=== PATIENT | female | born 1925 | race American Indian/Alaskan Native ===

== ENCOUNTER 2017-01-01 19:12 | Observation (INO) | payer MEDICARE ==
[2017-01-01 19:12] VITALS: BMI 32.3
[2017-01-01 21:54] LABS: BASO # 0.1 K/uL (0.0-0.2); BASO % 1.4 % (0.0-2.0); EOS # 0.2 K/uL (0.0-0.7); EOS % 3.4 % (0.0-4.0); HEMATOCRIT 33.6 % (34.0-47.0); LYMPH # 2.2 K/uL (1.0-4.3); LYMPH % 35.2 % (20.0-40.0); MEAN CELL VOLUME 91.7 fL (81.0-99.0); MEAN CORPUSCULAR HEMOGLOBIN 30.5 pg (27.0-31.0); MEAN CORPUSCULAR HGB CONC 33.2 g/dL (33.0-37.0); MEAN PLATELET VOLUME 9.2 fL (7.2-11.7); MONO # 0.5 K/uL (0.0-0.8); MONO % 8.7 % (0.0-10.0); RED CELL DISTRIBUTION WIDTH 13.1 % (11.5-14.5); WHITE BLOOD COUNT 6.3 K/uL (4.8-10.8)
[2017-01-01 22:02] LABS: INR 1.1
[2017-01-01 22:11] LABS: CHLORIDE 103 mmol/L (98-107); POTASSIUM 4.1 mmol/L (3.6-5.2); SODIUM 140 mmol/L (132-148)
[2017-01-01 22:13] LABS: BILIRUBIN,TOTAL 0.7 mg/dL (0.2-1.3); CARBON DIOXIDE 26 mmol/L (22-30); GFR AFRICAN-AMERICAN > 60
[2017-01-01 22:14] LABS: ALB/GLOB RATIO 1.2 (1.0-2.1); ALKALINE PHOSPHATASE 65 U/L (38-126); ALT/SGPT 24 U/L (9-52); AST/SGOT 30 U/L (14-36); BLOOD UREA NITROGEN 16 mg/dL (7-17); GLUCOSE,RANDOM 138 mg/dL (65-105)
--- NOTE | 2017-01-01 22:38 | C.PDOC ---
History Of Present Illness 89 year old female who presents to the ER with a complaint of lower extremity edema for the past week. Denies chest pain, SOB, or Hx of CHF. Time Seen by Provider: 01/01/17 21:14 Chief Complaint (Nursing): Lower Extremity Problem/Injury History Per: Patient History/Exam Limitations: no limitations Onset/Duration Of Symptoms: Days Current Symptoms Are (Timing): Still Present Recent travel outside of the [place]: No Past Medical History Reviewed: Historical Data, Nursing Documentation, Vital Signs Vital Signs: Last Vital Signs Temp 98.0 F 01/01/17 19:33 Pulse 76 01/01/17 22:29 Resp 16 01/01/17 22:29 BP 152/55 H 01/01/17 22:29 Pulse Ox 100 01/01/17 23:00 - Medical History PMH: Arthritis, Asthma, Diabetes, HTN, Hypercholesterolemia Surgical History: Cholecystectomy - [facility] Procedures INJECT STEROID (05/07/14) INJECTION INTO JOINT (05/07/14) Family History: States: Unknown Family Hx - Social History Hx Tobacco Use: No Hx Alcohol Use: No Hx Substance Use: No - Immunization History Hx Tetanus Toxoid Vaccination: No Hx Influenza Vaccination: No Hx Pneumococcal Vaccination: No Review Of Systems Constitutional: Negative for: Fever, Chills Cardiovascular: Negative for: Chest Pain Respiratory: Negative for: Shortness of Breath Musculoskeletal: Positive for: Other (Lower extremity edema) Neurological: Negative for: Weakness, Numbness Physical Exam - Physical Exam Appears: Non-toxic Skin: Normal Color, Warm, Dry Head: Atraumatic, Normacephalic Oral Mucosa: Moist Neck: Normal, Supple Chest: Symmetrical, No Tenderness Cardiovascular: Rhythm Regular, JVD Respiratory: No Rales, No Rhonchi, Wheezing (Scattered) Gastrointestinal/Abdominal: Soft, No Tenderness Extremity: Pedal Edema (Pitting bilaterally) Neurological/Psych: Oriented x3, Normal Speech, Normal Cognition ED Course And Treatment - Laboratory Results Result Diagrams: 01/01/17 21:46 01/01/17 21:46 Lab Interpretation: Abnormal (d-dimer 774 H (but acceptable range for pt's age 10 x age), bnp elevated, trop neg.) ECG: Interpreted By Me ECG Rhythm: Sinus Rhythm ECG Interpretation: Normal Rate From EC O2 Sat by Pulse Oximetry: 100 (Room air) Pulse Ox Interpretation: Normal - Radiology CXR: Interpreted by Me CXR Interpretation: Yes: No Acute Disease Progress Note: Blood work, CXR, urinalysis, and EKG ordered. Lasix administered. Reevaluation Time: 00:16 Reassessment Condition: Improved - Physician Consult Information Outcome Of Conversation: [id number] Gauthier's service, who refer us to admit to Dr. Fowler's Serivce. 0000: d/w Dr. Fowler's serivice, declined to admit , but will consult PRN. 0015: d/w Dr. Mcgregor, ok to Tele Obs Medical Decision Making Medical Decision Making: mild CHF exacerbation, mainly leg edema, mild wheeze also h/o CHF much improved with lasix IV though d-dimer elevated, still in normal range for pt age, no suggestion of DVT with symmetrical lower leg edema Disposition Doctor Will See Patient In The: Hospital Counseled Patient/Family Regarding: Studies Performed, Diagnosis - Disposition Disposition: HOSPITALIZED Disposition Time: 00:19 Condition: GOOD Forms: [employer] (Estonian) - Clinical Impression Clinical Impression: CHF (congestive heart failure), Leg edema - Scribe Statement The provider has reviewed the documentation as recorded by the Scribe Theron Jarvis All medical record entries made by the Scribe were at my direction and personally dictated by me. I have reviewed the chart and agree that the record accurately reflects my personal performance of the history, physical exam, medical decision making, and the department course for this patient. I have also personally directed, reviewed, and agree with the discharge instructions and disposition.
--- NOTE | 2017-01-01 23:00 | C.PDOC ---
Time Seen by Provider: 01/01/17 21:14 Chief Complaint (Nursing): Lower Extremity Problem/Injury Past Medical History Vital Signs: Last Vital Signs Temp 98.0 F 01/01/17 19:33 Pulse 70 01/01/17 21:30 Resp 16 01/01/17 21:30 BP 163/86 H 01/01/17 21:30 Pulse Ox 100 01/01/17 21:30 - Medical History PMH: Arthritis, Asthma, Diabetes, HTN, Hypercholesterolemia Surgical History: Cholecystectomy - [facility] Procedures INJECT STEROID (05/07/14) INJECTION INTO JOINT (05/07/14) Family History: States: Unknown Family Hx - Social History Hx Tobacco Use: No Hx Alcohol Use: No Hx Substance Use: No - Immunization History Hx Tetanus Toxoid Vaccination: No Hx Influenza Vaccination: No Hx Pneumococcal Vaccination: No ED Course And Treatment - Laboratory Results Result Diagrams: 01/01/17 21:46 O2 Sat by Pulse Oximetry: 100 Disposition - Disposition Forms: [facility] (Russian)
[2017-01-02 00:19] LABS: RBC URINE < 1 /hpf (0-3); URINE BACTERIA RARE (<OCC); URINE BILIRUBIN NEGATIVE (NEGATIVE); URINE BLOOD NEGATIVE (NEGATIVE); URINE COLOR Colorless (YELLOW); URINE GLUCOSE (UA) NORMAL (Normal); URINE KETONE NEGATIVE (NEGATIVE); URINE LEUKOCYTE ESTERASE NEG Leu/uL (Negative); URINE PROTEIN NEGATIVE (NEGATIVE); URINE UROBILINOGEN NORMAL mg/dL (0.2-1.0); WBC URINE < 1 /hpf (0-5)
--- NOTE | 2017-01-02 08:47 | RAD ---
PROCEDURE: CHEST RADIOGRAPH, 1 VIEW HISTORY: SOB COMPARISON: Comparison is made to 05/14/2014 FINDINGS: LUNGS: No evidence of new infiltrate or consolidation in the lungs. PLEURA: No pneumothorax or pleural fluid seen. CARDIOVASCULAR: Normal. OSSEOUS STRUCTURES: No significant abnormalities. VISUALIZED UPPER ABDOMEN: Normal. OTHER FINDINGS: None. IMPRESSION: No active disease.
[2017-01-02] MEDS ORDERED: Home Med 1 UNIT (Potassium Chloride [Potassium Chloride] 10 MEQ) PO SCH (10:00)
[2017-01-02] MEDS: Enoxaparin 40 mg Syringe SC SCH (10:07)
--- NOTE | 2017-01-03 07:07 | CP.PCM.CON ---
History of Present Illness - History of Present Illness History of Present Illness: I was asked to see patient by Dr. Reilly. Patient is a 89 year old female with PMH HTN, hypercholewterolemia who presents with dytspnea. She developed lower extremity pain about 1 week prior to admission. The patient describesprogressive dyspnea. Symptoms occurred at rest. She has also develoepd dyspnea on exertion. D-dimer was elevated and chest X-ray was suggestive of mild CHF. The patient denies current chest pain. Review of Systems - Constitutional Constitutional: absent: As Per HPI, Anorexia, Chills, Daytime Sleepiness, Excessive Sweating, Fatigue, Fever, Frequent Falls, Headache, Increased Appetite , Lethargy, Malaise, Night Sweats, Snoring, Sleep Apnea, Weight Gain, Weight Loss, Weakness, Other - EENT Eyes: absent: As Per HPI, Blind Spots, Blurred Vision, Change in Vision, Decreased Night Vision, Diplopia, Discharge, Dry Eye, Exophthalmos, Floaters, Irritation, Itchy Eyes, Loss of Peripheral Vision, Pain, Photophobia, Requires Corrective Lenses, Sees Flashes, Spots in Vision, Tunnel Vision, Other Visual Disturbances, Loss of Vision, Other Ears: absent: As Per HPI, Decreased Hearing, Ear Discharge, Ear Pain, Tinnitus, Abnormal Hearing, Disequilibrium, Dizziness, Other Nose/Mouth/Throat: absent: As Per HPI, Epistaxis, Nasal Congestion, Nasal Discharge, Nasal Obstruction, Nasal Trauma, Nose Pain, Post Nasal Drip, Sinus Pain, Sinus Pressure, Bleeding Gums, Change in Voice, Dental Pain, Dry Mouth, Dysphagia, Halitosis, Hoarsness, Lip Swelling, Mouth Lesions, Mouth Pain, Odynophagia, Sore Throat, Throat Swelling, Tongue Swelling, Facial Pain, Neck Pain, Neck Mass, Other - Breasts Breasts: absent: As Per HPI, Change in Shape, Mass, Pain, Nipple Discharge, Nipple Inversion, Skin Changes, Swelling, Other - Cardiovascular Cardiovascular: Dyspnea - Respiratory Respiratory: absent: As Per HPI, Cough, Dyspnea, Hemoptysis, Dyspnea on Exertion , Wheezing, Snoring, Stridor, Pain on Inspiration, Chest Congestion, Excessive Mucous Production, Change in Mucous Color, Pain with Coughing, Other - Gastrointestinal Gastrointestinal: absent: As Per HPI, Abdominal Pain, Belching, Bloating, Change in Bowel Habits, Change in Stool Character, Coffee Ground Emesis, Constipation, Cramping, Diarrhea, Dyspepsia, Dysphagia, Early Satiety, Excessive Flatus, Fecal Incontinence, Heartburn, Hematemesis, Hematochezia, Loose Stools, Melena, Nausea, Odynophagia, Temesmus, Vomiting, Other - Genitourinary Genitourinary: absent: As Per HPI, Change in Urinary Stream, Difficulty Urinating, Dysuria, Flank Pain, Hematuria, Pyuria, Nocturia, Urinary Incontinence, Urinary Frequency, Urinary Hesitance, Urinary Urgency, Voiding Freq/Small Amts, Freq UTI, Hx Renal/Bladder Calculi, Hx /Renal Surgery, Bladder Distension, Other - Musculoskeletal Musculoskeletal: Radiating Pain into Limb - Integumentary Integumentary: absent: As Per HPI, Acne, Alopecia, Bleeding Lesions, Change in Hair, Change in Nails, Change in Pigmentation, Changing Lesions, Dry Skin, Erythema, Furuncle, Hirsutism, Lesions, New Lesions, Non-Healing Lesions, Photosensitivity, Pruritus, Rash, Skin Pain, Skin Ulcer, Sores, Striae, Swelling , Unusual Bruising, Wounds, Jaundice, Other - Neurological Neurological: absent: As Per HPI, Abnormal Gait, Abnormal Hearing, Abnormal Movements, Abnormal Speech, Behavioral Changes, Burning Sensations, Confusion, Convulsions, Disequilibrium, Dizziness, Numbness, Focal Weakness, Frequent Falls , Headaches, Lack of Coordination, Loss of Vision, Memory Loss, Paresthesias, Radicular Pain, Restless Legs, Sensory Deficit, Syncope, Tingling, Tremor, Vertigo, Weakness, Other Visual Disturbances, Other - Psychiatric Psychiatric: absent: As Per HPI, Abnormal Sleep Pattern, Anhedonia, Anxiety, Auditory Hallucinations, Behavioral Changes, Change in Appetite, Change in Libido, Confusion, Depression, Difficulty Concentrating, Hallucinations, Homicidal Ideation, Hopelessness, Irritability, Memory Loss, Mood Swings, Panic Attacks, Paranoia, Suicidal Ideation, Visual Hallucinations, Tactile Hallucinations, Other - Endocrine Endocrine: absent: As Per HPI, Change in Body Appearance, Change in Libido, Cold Intolorance, Deepening of Voice, Excessive Sweating, Fatigue, Flushing, Heat Intolorance, Increase in Ring/Shoe/Hat Size, Palpitations, Polydipsia, Polyphagia, Polyuria, Other - Hematologic/Lymphatic Hematologic: absent: As Per HPI, Easy Bleeding, Easy Bruising, Lymphadenopathy, Other Past Patient History - Past Medical History & Family History Past Medical History?: Yes - Past Social History Smoking Status: Never Smoked - CARDIAC Hx Heart Attack: Yes Hx Hypercholesterolemia: Yes Hx Hypertension: Yes - PULMONARY Hx Asthma: Yes - HEENT Hx Cataracts: Yes (surgery b/l) - RENAL Hx Chronic Kidney Disease: No - ENDOCRINE/METABOLIC Hx Diabetes Mellitus Type 2: Yes - HEMATOLOGICAL/ONCOLOGICAL Hx Blood Disorders: No - MUSCULOSKELETAL/RHEUMATOLOGICAL Hx Arthritis: Yes Hx Falls: Yes (1 episode) - PSYCHIATRIC Hx Substance Use: No - SURGICAL HISTORY Hx Cholecystectomy: Yes - ANESTHESIA Hx Anesthesia: Yes Hx Anesthesia Reactions: No Meds Allergies/Adverse Reactions: Allergies Allergy/AdvReac Type Severity Reaction Status Date / Time Sulfa (Sulfonamide Allergy RASH Verified 01/01/17 21:33 Antibiotics) - Medications Medications: Current Medications Amlodipine Besylate (Norvasc) 2.5 mg PO DAILY [facility] Last Admin: 01/02/17 10:07 Dose: 2.5 mg Enoxaparin Sodium (Lovenox) 40 mg SC DAILY [facility] Last Admin: 01/02/17 10:07 Dose: 40 mg Furosemide (Lasix) 40 mg IVP DAILY [facility] Last Admin: 01/02/17 10:07 Dose: 40 mg Glimepiride (Amaryl) 2 mg PO BID [facility] Last Admin: 01/02/17 18:35 Dose: 2 mg Lisinopril (Zestril) 2.5 mg PO DAILY [facility] Last Admin: 01/02/17 11:10 Dose: 2.5 mg Metformin HCl (Glucophage) 500 mg PO DAILY [facility] Last Admin: 01/02/17 10:07 Dose: 500 mg Metoprolol Tartrate (Lopressor) 25 mg PO BID [facility] Last Admin: 01/02/17 18:35 Dose: 25 mg Potassium Chloride (Klor-Con 10) 10 meq PO DAILY [facility] Physical Exam - Head Exam Head Exam: NORMAL INSPECTION - Eye Exam Eye Exam: Normal appearance - ENT Exam ENT Exam: Mucous Membranes Moist - Neck Exam Neck exam: Positive for: Full Rom - Respiratory Exam Respiratory Exam: NORMAL BREATHING PATTERN - Cardiovascular Exam Cardiovascular Exam: REGULAR RHYTHM - GI/Abdominal Exam GI & Abdominal Exam: Normal Bowel Sounds - Rectal Exam Rectal Exam: Deferred - Extremities Exam Extremities exam: Negative for: pedal edema - Back Exam Back exam: NORMAL INSPECTION - Neurological Exam Neurological exam: Alert, Oriented x3 - Psychiatric Exam Psychiatric exam: Normal Affect - Skin Skin Exam: Normal Color Results - Vital Signs Recent Vital Signs: Last Vital Signs Temp 98.5 F 01/02/17 23:35 Pulse 73 01/03/17 03:31 Resp 20 01/02/17 23:35 BP 114/62 01/02/17 23:35 Pulse Ox 96 01/02/17 23:35 - Labs Result Diagrams: 01/01/17 21:46 01/01/17 21:46 Labs: Laboratory Results - last 24 hr 01/02/17 01/02/17 01/02/17 07:49 11:13 16:50 POC Glucose (mg/dL) 93 193 H 70 01/02/17 21:36 POC Glucose (mg/dL) 103 - EKG Data EKG Interpreted by: Myself EKG shows normal: Sinus rhythm - EKG Data EKG Specific Queries Q Waves: V1, V2, V3, V4 Assessment & Plan (1) CHF (congestive heart failure) Assessment and Plan: The patient will require evaluation of ventricular function given presentation. EKG is abnormal and suggestive of previous HI. Echocardiogram will be reviewed Status: Acute (2) HTN (hypertension) Assessment and Plan: blood pressure control. Status: Acute
--- NOTE | 2017-01-03 08:13 | HP ---
HISTORY OF PRESENT ILLNESS: Ms. Isaac is an 89-year-old female, presented with chief complaint of shortness of breath and weakness, fatigue, tiredness. She came to the hospital for admission. The patient has a history of heart failure. PHYSICAL EXAMINATION: GENERAL: The patient is awake, alert, and oriented and short of breath. VITAL SIGNS: Temperature 98, pulse 90. HEENT: Within normal limits. NECK: Supple. CHEST: Symmetrical. HEART: Regular. ABDOMEN: Soft. EXTREMITIES: 2+ edema. IMPRESSION: The patient suffers from congestive heart failure. The patient bed rest, supportive care. Dell Reilly MD
--- NOTE | 2017-01-03 08:21 | CP.PCM.PN ---
Subjective - Date & Time of Evaluation Date of Evaluation: 01/03/17 Time of Evaluation: 08:15 - Subjective Subjective: no new complaints. Objective - Vital Signs/Intake and Output Vital Signs (last 24 hours): Temp Pulse Resp BP Pulse Ox 98.5 F 73 20 114/62 96 01/02/17 23:35 01/03/17 03:31 01/02/17 23:35 01/02/17 23:35 01/02/17 23:35 Intake and Output: 01/03/17 01/03/17 06:59 18:59 Intake Total 300 Balance 300 - Medications Medications: Current Medications Amlodipine Besylate (Norvasc) 2.5 mg PO DAILY [facility] Last Admin: 01/02/17 10:07 Dose: 2.5 mg Enoxaparin Sodium (Lovenox) 40 mg SC DAILY [facility] Last Admin: 01/02/17 10:07 Dose: 40 mg Furosemide (Lasix) 40 mg IVP DAILY [facility] Last Admin: 01/02/17 10:07 Dose: 40 mg Glimepiride (Amaryl) 2 mg PO BID [facility] Last Admin: 01/02/17 18:35 Dose: 2 mg Lisinopril (Zestril) 2.5 mg PO DAILY [facility] Last Admin: 01/02/17 11:10 Dose: 2.5 mg Metformin HCl (Glucophage) 500 mg PO DAILY [facility] Last Admin: 01/02/17 10:07 Dose: 500 mg Metoprolol Tartrate (Lopressor) 25 mg PO BID [facility] Last Admin: 01/02/17 18:35 Dose: 25 mg Potassium Chloride (Klor-Con 10) 10 meq PO DAILY [facility] - Labs Labs: PT 12.3 SECONDS (9.7-12.2) H 01/01/17 21:46 INR 1.1 01/01/17 21:46 APTT 33 SECONDS (21-34) 01/01/17 21:46 - Constitutional Appears: Non-toxic - Head Exam Head Exam: NORMAL INSPECTION - Eye Exam Eye Exam: Normal appearance - ENT Exam ENT Exam: Mucous Membranes Moist - Neck Exam Neck Exam: Full ROM - Respiratory Exam Respiratory Exam: NORMAL BREATHING PATTERN - Cardiovascular Exam Cardiovascular Exam: REGULAR RHYTHM - GI/Abdominal Exam GI & Abdominal Exam: Normal Bowel Sounds - Rectal Exam Rectal Exam: Deferred - Extremities Exam Extremities Exam: Pedal Edema - Back Exam Back Exam: NORMAL INSPECTION - Neurological Exam Neurological Exam: Alert - Psychiatric Exam Psychiatric exam: Normal Affect - Skin Skin Exam: Normal Color Assessment and Plan (1) CHF (congestive heart failure) Assessment & Plan: euvolemic. will obtain echocardiogram Status: Acute (2) HTN (hypertension) Status: Acute
[2017-01-03] MEDS: Enoxaparin 40 mg Syringe SC SCH (10:56)
[2017-01-03] MEDS: Potassium Chloride 10 mEq ER Tab PO SCH (10:57)
[2017-01-03 11:32] LABS: BASO % 0.9 % (0.0-2.0); EOS # 0.2 K/uL (0.0-0.7); EOS % 4.2 % (0.0-4.0); HEMATOCRIT 33.4 % (34.0-47.0); LYMPH # 1.7 K/uL (1.0-4.3); MEAN CELL VOLUME 91.2 fL (81.0-99.0); MEAN CORPUSCULAR HEMOGLOBIN 30.5 pg (27.0-31.0); MEAN CORPUSCULAR HGB CONC 33.4 g/dL (33.0-37.0); MEAN PLATELET VOLUME 8.8 fL (7.2-11.7); MONO # 0.6 K/uL (0.0-0.8); MONO % 11.4 % (0.0-10.0); RED CELL DISTRIBUTION WIDTH 13.5 % (11.5-14.5); WHITE BLOOD COUNT 5.1 K/uL (4.8-10.8)
[2017-01-03 11:55] LABS: ALB/GLOB RATIO 1.1 (1.0-2.1); ALKALINE PHOSPHATASE 56 U/L (38-126); AST/SGOT 30 U/L (14-36); BILIRUBIN,TOTAL 0.8 mg/dL (0.2-1.3); BLOOD UREA NITROGEN 14 mg/dL (7-17); CARBON DIOXIDE 31 mmol/L (22-30); GFR AFRICAN-AMERICAN > 60; MAGNESIUM 1.8 mg/dL (1.6-2.3); POTASSIUM 3.8 mmol/L (3.6-5.2)
[2017-01-03 12:12] LABS: ALT/SGPT 19 U/L (9-52); CHLORIDE 98 mmol/L (98-107); GLUCOSE,RANDOM 117 mg/dL (65-105); PHOSPHOROUS 3.6 mg/dL (2.5-4.5); SODIUM 139 mmol/L (132-148); TOTAL PROTEIN 6.4 g/dL (6.3-8.3)
--- NOTE | 2017-01-03 15:17 | CP.PCM.PN ---
Subjective - Date & Time of Evaluation Date of Evaluation: 01/03/17 Time of Evaluation: 15:15 - Subjective Subjective: Progress note. Attending: Dr. Reilly This is an 89 yo female with past medical hx of CHF, HTN, HLD, DM prsenting with several days of increasing shortness of breath and weakness. Patient says this has happened before. Pt seen and examined at bedside. No acute distress. Pt coming in with chf exacerbation, x ray shows mild exacerbation. Dr. Diallo following. PMH: CHF, HTN, HLD, DM Allergies: sulfa FH: non contributory PSH: denies Social hx: denies smoking, drinking, drug use. Born in . Objective - Vital Signs/Intake and Output Vital Signs (last 24 hours): Temp Pulse Resp BP Pulse Ox 98.1 F 79 20 153/67 H 96 01/03/17 08:00 01/03/17 10:55 01/03/17 08:00 01/03/17 10:57 01/03/17 08:00 Intake and Output: 01/03/17 01/03/17 06:59 18:59 Intake Total 300 Balance 300 - Medications Medications: Current Medications Amlodipine Besylate (Norvasc) 2.5 mg PO DAILY [facility] Last Admin: 01/03/17 10:57 Dose: 2.5 mg Enoxaparin Sodium (Lovenox) 40 mg SC DAILY [facility] Last Admin: 01/03/17 10:56 Dose: 40 mg Furosemide (Lasix) 40 mg IVP DAILY [facility] Last Admin: 01/03/17 10:56 Dose: 40 mg Glimepiride (Amaryl) 2 mg PO BID [facility] Last Admin: 01/03/17 10:57 Dose: 2 mg Lisinopril (Zestril) 2.5 mg PO DAILY [facility] Last Admin: 01/02/17 11:10 Dose: 2.5 mg Metformin HCl (Glucophage) 500 mg PO DAILY [facility] Last Admin: 01/03/17 10:56 Dose: 500 mg Metoprolol Tartrate (Lopressor) 25 mg PO BID [facility] Last Admin: 01/03/17 10:57 Dose: 25 mg Potassium Chloride (Klor-Con 10) 10 meq PO DAILY [facility] Last Admin: 01/03/17 10:57 Dose: 10 meq - Labs Labs: 01/03/17 11:19 01/03/17 11:19 PT 12.3 SECONDS (9.7-12.2) H 01/01/17 21:46 INR 1.1 01/01/17 21:46 APTT 33 SECONDS (21-34) 01/01/17 21:46 - Constitutional Appears: Non-toxic, No Acute Distress - Head Exam Head Exam: ATRAUMATIC, NORMAL INSPECTION, NORMOCEPHALIC - Eye Exam Eye Exam: EOMI - ENT Exam ENT Exam: Mucous Membranes Moist - Neck Exam Neck Exam: Full ROM, Normal Inspection - Respiratory Exam Respiratory Exam: Decreased Breath Sounds, Rales Additional comments: mild rales - Cardiovascular Exam Cardiovascular Exam: +S1, +S2 - GI/Abdominal Exam GI & Abdominal Exam: Soft, Normal Bowel Sounds. absent: Tenderness - Extremities Exam Extremities Exam: Full ROM, Normal Inspection - Neurological Exam Neurological Exam: Alert, Awake, Oriented x3 - Psychiatric Exam Psychiatric exam: Normal Affect, Normal Mood - Skin Skin Exam: Dry, Intact, Normal Color, Warm Assessment and Plan - Assessment and Plan (Free Text) Assessment: This is an 89 yo female with past medical hx of HTN, HLD, likely prior ID based on EKG changes, CHF presenting with 1. CHF exacerbation -lasix 40 iv daily -I/O -daily weights -pt is in positive fluid balance past 24 hrs -continue lopressor 25 po bid -will check with pharmacy to see if patient is on hoa/arb -K chloride 10 mg po daily -cardiology consulted. recs appreciated -EKG shows NSR 77 beats per minute, suggestive of anterior infarct -echo pending -troponin negative x 1 -BNP 3830 2. hx of HTN -norvasc 2.5 mg po daily 3. hx of HLD -continue to monitor 4. hx of DM -continue amaryl 2 mg po bid -continue metformin 500 po daily 5. GI/DVT ppx -continue lovenox -scds discussed with Dr. Reilly
--- NOTE | 2017-01-03 15:27 | CARD ---
APPROVED REPORT EXAM: Two-dimensional and M-mode echocardiogram with Doppler and color Doppler. Other Information Quality : GoodRhythm : INDICATION Peripheral Edema Congestive Heart Failure COPD RISK FACTORS Hypertension M-Mode DIMENSIONS Left Atrium (MM)3.49 (2.5-4.0cm)IVSd1.25 (0.7-1.1cm) Aortic Root2.79 (2.2-3.7cm)LVDd3.80 (4.0-5.6cm) Aortic Cusp Exc.1.61 (1.5-2.0cm)PWd1.49 (0.7-1.1cm) FS (%) 26 %LVDs2.82 (2.0-3.8cm) LVEF (%)51 (>50%) Mitral Valve MV E Pbrxqugm16.9cm/sMV A Vfjpxbfm506.5cm/sE/A ratio0.5 TDI E/Lateral E'0.0E/Medial E'0.0 LEFT VENTRICLE The left ventricle is normal size. There is normal left ventricular wall thickness. Borderline LV systolic function. Transmitral Doppler flow pattern is abnormal. RIGHT VENTRICLE The right ventricle is normal size. ATRIA The left atrium size is normal. The right atrium size is normal. AORTIC VALVE The aortic valve is normal in structure. MITRAL VALVE The mitral valve is normal in structure. TRICUSPID VALVE The tricuspid valve is normal in structure. <Conclusion> Borderline LV systolic function. Diastolic dysfunction. Normal chamber size. No significant valvular abnormality seeen.
[2017-01-04 00:42] VITALS: RESP 20
--- NOTE | 2017-01-04 07:29 | CP.PCM.PN ---
Subjective - Date & Time of Evaluation Date of Evaluation: 01/04/17 Time of Evaluation: 09:00 - Subjective Subjective: Medicine Progress Note- Dr. Reilly's Service: Patient seen and examined at bedside this AM. Patient is complaining of some joint pain which she states is chronic. She would like to have some nebulizer treatment for her asthma. Otherwise patient feels well. No SOB or CP. No nausea or vomiting. Sitting up in bed in no acute distress. Objective - Vital Signs/Intake and Output Vital Signs (last 24 hours): Temp Pulse Resp BP Pulse Ox 98.7 F 66 20 117/61 100 01/04/17 00:00 01/04/17 00:21 01/04/17 00:00 01/04/17 00:00 01/04/17 00:00 Intake and Output: 01/04/17 01/04/17 06:59 18:59 Intake Total 250 Balance 250 - Medications Medications: Current Medications Amlodipine Besylate (Norvasc) 2.5 mg PO DAILY [facility] Last Admin: 01/03/17 10:57 Dose: 2.5 mg Enoxaparin Sodium (Lovenox) 40 mg SC DAILY [facility] Last Admin: 01/03/17 10:56 Dose: 40 mg Furosemide (Lasix) 40 mg IVP DAILY [facility] Last Admin: 01/03/17 10:56 Dose: 40 mg Lisinopril (Zestril) 2.5 mg PO DAILY [facility] Last Admin: 01/03/17 10:58 Dose: 2.5 mg Metformin HCl (Glucophage) 500 mg PO DAILY [facility] Last Admin: 01/03/17 10:56 Dose: 500 mg Metoprolol Tartrate (Lopressor) 25 mg PO BID [facility] Last Admin: 01/03/17 18:55 Dose: 25 mg Potassium Chloride (Klor-Con 10) 10 meq PO DAILY [facility] Last Admin: 01/03/17 10:57 Dose: 10 meq - Labs Labs: 01/03/17 11:19 01/03/17 11:19 PT 12.3 SECONDS (9.7-12.2) H 01/01/17 21:46 INR 1.1 01/01/17 21:46 APTT 33 SECONDS (21-34) 01/01/17 21:46 - Constitutional Appears: No Acute Distress - Head Exam Head Exam: NORMAL INSPECTION, NORMOCEPHALIC - Eye Exam Eye Exam: EOMI, Normal appearance - ENT Exam ENT Exam: Mucous Membranes Moist - Respiratory Exam Respiratory Exam: Clear to Ausculation Bilateral, NORMAL BREATHING PATTERN - Cardiovascular Exam Cardiovascular Exam: REGULAR RHYTHM, +S1, +S2 - GI/Abdominal Exam GI & Abdominal Exam: Soft. absent: Distended, Tenderness - Extremities Exam Extremities Exam: Full ROM, Normal Inspection - Neurological Exam Neurological Exam: Alert, Awake. absent: Oriented x3 (oriented to self and place only) - Psychiatric Exam Psychiatric exam: Normal Affect, Normal Mood - Skin Skin Exam: Normal Color, Warm Assessment and Plan (1) CHF (congestive heart failure) Assessment & Plan: Patient being monitored on Tele. Cardio consult placed- Dr. Diallo- help appreciated -EKG shows NSR 77 beats per minute, suggestive of anterior infarct -ECHO shows 51% EF with diastolic dysfunction. -troponin negative x 1 -BNP 3830 -I/O -daily weights -As per cardio, patient is euvolemic. -continue lopressor 25 po bid -continue new med Lisinopril 2.5 mg PO daily. -continue lasix 40 iv daily. Will switch to 40mg PO at discharge. Discharge planning as per Dr. Reilly. Status: Acute (2) HTN (hypertension) Assessment & Plan: -continue amlodipine 2.5 mg Po daily -continue lopressor 25 po bid -continue new med Lisinopril 2.5 mg PO daily. Status: Acute (3) Diabetes Assessment & Plan: ISS Accuchecks ACHS Continue Metformin 500 mg Continue Amaryl 2 mg PO BID Status: Acute - Assessment and Plan (Free Text) Assessment: 4. GI/DVT ppx -continue lovenox -scds -pepcid 20 mg PO BID All management as per Dr. Reilly
[2017-01-04 07:58] VITALS: TEMP 98.3; O2SAT 97
[2017-01-04 09:39] LABS: BASO # 0.1 K/uL (0.0-0.2); BASO % 1.2 % (0.0-2.0); EOS # 0.3 K/uL (0.0-0.7); EOS % 5.2 % (0.0-4.0); HEMATOCRIT 33.9 % (34.0-47.0); LYMPH % 34.2 % (20.0-40.0); MEAN CELL VOLUME 91.1 fL (81.0-99.0); MEAN CORPUSCULAR HEMOGLOBIN 30.7 pg (27.0-31.0); MEAN CORPUSCULAR HGB CONC 33.7 g/dL (33.0-37.0); MEAN PLATELET VOLUME 8.9 fL (7.2-11.7); MONO # 0.7 K/uL (0.0-0.8); NRBC % 0.1 % (0.0-2.0); RED CELL DISTRIBUTION WIDTH 13.4 % (11.5-14.5); WHITE BLOOD COUNT 5.9 K/uL (4.8-10.8)
[2017-01-04 09:52] LABS: CHLORIDE 103 mmol/L (98-107); POTASSIUM 3.8 mmol/L (3.6-5.2); SODIUM 140 mmol/L (132-148)
[2017-01-04 09:54] LABS: AST/SGOT 31 U/L (14-36); BILIRUBIN,TOTAL 0.7 mg/dL (0.2-1.3); CARBON DIOXIDE 28 mmol/L (22-30); GFR AFRICAN-AMERICAN > 60
[2017-01-04 09:55] LABS: ALB/GLOB RATIO 1.1 (1.0-2.1); ALKALINE PHOSPHATASE 58 U/L (38-126); ALT/SGPT 21 U/L (9-52); BLOOD UREA NITROGEN 13 mg/dL (7-17); CALCIUM 8.7 mg/dl (8.6-10.4); GLUCOSE,RANDOM 84 mg/dL (65-105); PHOSPHOROUS 3.1 mg/dL (2.5-4.5); TOTAL PROTEIN 6.5 g/dL (6.3-8.3)
[2017-01-04 09:56] LABS: MAGNESIUM 1.8 mg/dL (1.6-2.3)
[2017-01-04] MEDS: Enoxaparin 40 mg Syringe SC SCH (09:57)
[2017-01-04] MEDS: Potassium Chloride 10 mEq ER Tab PO SCH (09:57)
[2017-01-04 09:58] VITALS: BP 116/61
[2017-01-04 11:59] VITALS: PULSE 77
[2017-01-04] MEDS ORDERED: Albuterol-Ipratrop 3 mg / 0.5 (3 ml) UD INH SCH (15:45)
--- NOTE | 2017-01-04 15:55 | CP.PCM.PN ---
Subjective - Date & Time of Evaluation Date of Evaluation: 01/04/17 Time of Evaluation: 15:50 - Subjective Subjective: patient is doing well. no chest pain or dyspnea Objective - Vital Signs/Intake and Output Vital Signs (last 24 hours): Temp Pulse Resp BP Pulse Ox 98.3 F 77 20 116/61 97 01/04/17 07:57 01/04/17 10:00 01/04/17 07:57 01/04/17 09:58 01/04/17 07:57 Intake and Output: 01/04/17 01/04/17 06:59 18:59 Intake Total 250 Balance 250 - Medications Medications: Current Medications Albuterol/Ipratropium (Duoneb 3 Mg/0.5 Mg (3 Ml) Ud) 3 ml INH RQ6 [facility] Amlodipine Besylate (Norvasc) 2.5 mg PO DAILY [facility] Last Admin: 01/04/17 09:57 Dose: 2.5 mg Enoxaparin Sodium (Lovenox) 40 mg SC DAILY [facility] Last Admin: 01/04/17 09:57 Dose: 40 mg Furosemide (Lasix) 40 mg IVP DAILY [facility] Last Admin: 01/04/17 09:58 Dose: 40 mg Ibuprofen (Motrin Tab) 400 mg PO Q8H PRN PRN Reason: Pain, severe (8-10) Lisinopril (Zestril) 2.5 mg PO DAILY [facility] Last Admin: 01/04/17 09:57 Dose: 2.5 mg Metformin HCl (Glucophage) 500 mg PO DAILY [facility] Last Admin: 01/04/17 09:57 Dose: 500 mg Metoprolol Tartrate (Lopressor) 25 mg PO BID [facility] Last Admin: 01/04/17 09:57 Dose: 25 mg Potassium Chloride (Klor-Con 10) 10 meq PO DAILY [facility] Last Admin: 01/04/17 09:57 Dose: 10 meq - Labs Labs: 01/04/17 09:25 01/04/17 09:25 PT 12.3 SECONDS (9.7-12.2) H 01/01/17 21:46 INR 1.1 01/01/17 21:46 APTT 33 SECONDS (21-34) 01/01/17 21:46 - Constitutional Appears: Non-toxic - Head Exam Head Exam: NORMAL INSPECTION - Eye Exam Eye Exam: Normal appearance - ENT Exam ENT Exam: Mucous Membranes Moist - Neck Exam Neck Exam: Full ROM - Respiratory Exam Respiratory Exam: NORMAL BREATHING PATTERN - Cardiovascular Exam Cardiovascular Exam: REGULAR RHYTHM - GI/Abdominal Exam GI & Abdominal Exam: Normal Bowel Sounds - Rectal Exam Rectal Exam: Deferred - Extremities Exam Extremities Exam: absent: Pedal Edema - Back Exam Back Exam: NORMAL INSPECTION - Neurological Exam Neurological Exam: Alert - Psychiatric Exam Psychiatric exam: Normal Affect - Skin Skin Exam: Normal Color Assessment and Plan (1) CHF (congestive heart failure) Assessment & Plan: I reviewed the echocardiogam. likely diastolic dysfuntion. systolic function is at lower limits of normal. recommend medical therapy and blood pressure control. Status: Acute (2) HTN (hypertension) Status: Acute
--- NOTE | 2017-01-04 22:32 | CARD ---
APPROVED REPORT EKG Measurement Heart [id number] <Conclusion> Normal sinus rhythm Inferior infarct, age undetermined Anterior infarct, age undetermined Abnormal ECG
--- NOTE | 2017-01-05 08:10 | PCM.HF ---
Heart Failure Core Measure - Heart Failure Ejection Fraction: 40 % or Greater JENNA Inhibitor Prescribed: Yes Beta-[place] Prescribed: Metoprolol Succinate Angiotensin II Receptor [place] Prescribed: No Contraindication/Reason for not providing: on JENNA AnticoagulationTherapy for Atrial Fibrillation/Atrialflutter: No Contraindication/Reason for not providing: no hx of a fib Aldosterone Antagonist Prescribed: No Contraindication/Reason for not providing: ef>45 Hydralazine Nitrate Prescribed: No Contraindication/Reason for not providing: ef>45 Implantable Cardioverter Defibrillator Therapy: No Contraindication/Reason for not providing: ef>45 Cardiac Resynchronization Therapy Prescribed: No Contraindication/Reason for not providing: ef>45 - Follow up Will be discharged to: Home Follow Up Date (must be within 7 days from discharge): 01/10/17 Follow Up Time: 09:00
== END 2017-01-04 17:05 | disposition home or self-care (01) ==
LOC: C.ER 19:12 → C.9E 01-02 00:21 → C.5S 01-02 07:55
PROVIDERS: ADMIT Internal Medicine Pulmonary Disease; ATTEND Internal Medicine Pulmonary Disease
DX: I11.0 Hypertensive heart disease with heart failure (principal); I50.9 Heart failure, unspecified; I25.2 Old myocardial infarction; E78.5 Hyperlipidemia, unspecified; E11.9 Type 2 diabetes mellitus without complications; J45.909 Unspecified asthma, uncomplicated; Z79.84 Long term (current) use of oral hypoglycemic drugs
CPT/HCPCS: 36415; 71010; 80053; 81001; 82948; 83735; 83880; 84100; 84484; 85025; 85378; 85610; 85730; 93005; 93306; 94640; 96374; 97116; 97162; 99285; G0378; G8978; G8979; J1650; J1940